=== PATIENT | female | born 1950 | race Caucasian/White ===

== ENCOUNTER → 2016-12-02 | Outpatient (CLI) | payer OTHER ==
[~2016-12-02] MED LIST: AUGMENTIN 875 M1 TAB PO; BUPROPION HYDR150 M1 PO; CEFUROXIME AXE250 MG PO; CIPRO250 MG PO; CIPROFLOXACIN500 MG PO; CITALOPRAM40 MG PO; CLARITIN10 MG PO; CORDROL20 MG PO; CYCLOBENZAPRINE10 MG PO; DARVOCET N 1001 TAB PO; FLEXERIL10 MG PO; GABAPENTIN TAB600 MG PO; HYDR12.5C PO; HYDROCODONE BIT1 T11 PO; IMITREX PO; KENALOG0.1% TP; LEVAQUIN750 M1 PO; LEXAPRO; LIDODERM 5% PATC1 EA PO; LISINOPRIL20 MG PO; LISINOPRIL40 MG PO; MIRAPEX0.25 MG PO; MOTRIN800 MG PO; Motrin,Rufen800 MG PO; NAPROXEN EC500 MG PO; NEURONTIN; PERCOCET 325 MG1 TA2 PO; PRILOSEC20 MG PO; PRILOSEC40 M1 PO; PROPRANOLOL; PROTONIX20 MG PO; PYRIDIUM200 MG PO; SYNTHROID; SYNTHROID,LEVO88 MCG PO; TRAZODONE50 MG PO; URSO FORTE500 MG PO; URSODIOL; URSODIOL250 MG PO; VALIUM10 MG PO; VANCOMYCIN1 GM/1001 IV; VICODIN 500 MG-1 TAB PO; VISTARIL50 MG PO; VOLTAREN; XANAX0.25 MG PO; XANAX0.5 MG PO; ZOFRAN4 MG PO
== END | disposition home or self-care (01) ==
LOC: RAD 10:16
DX: M47.896 Other spondylosis, lumbar region (principal); M41.86 Other forms of scoliosis, lumbar region; M54.5 Low back pain; M25.78 Osteophyte, vertebrae; R52 Pain, unspecified

== ENCOUNTER 2017-02-01 13:34 | Emergency (ER) | payer OTHER ==
[~2017-02-01] VITALS: Ht 170.1 cm; Wt 83.9 kg
[~2017-02-01 13:34] MED LIST changes: -BUPROPION HYDR150 M1 PO; -LEVAQUIN750 M1 PO; -VANCOMYCIN1 GM/1001 IV
[2017-02-01] MEDS ORDERED: LEVAQUIN750 M1 PO (13:54)
[2017-02-01] MEDS ORDERED: BUPROPION HYDR150 M1 PO (13:54)
[2017-02-01] MEDS ORDERED: VANCOMYCIN1 GM/1001 IV (13:56)
[2017-02-01 14:30] LABS: BILIRUBIN NEGATIVE (NEGATIVE); BLOOD NEGATIVE (NEGATIVE); CLARITY SL CLOUDY (CLEAR); COLOR YELLOW (YELLOW); GLUCOSE NEGATIVE (NEGATIVE); KETONE NEGATIVE (NEGATIVE); LEUKO ESTERASE 2+ (NEGATIVE); NITRITE NEGATIVE (NEGATIVE); PH 5.5 (5.0-9.0); PROTEIN NEGATIVE (NEGATIVE); SPECIFIC GRAVITY 1.025 (1.005-1.030); UROBILINOGEN 0.2 E.U./dl (0.2-1.0)
[2017-02-01 14:55] LABS: URINE REFLEX COMMENT YES (NO)
[2017-02-01 15:28] LABS: BASO % 0.4 % (0.0-1.0); EOS # 0.3 10*3/uL (0.0-0.4); EOS % 3.5 % (1.0-4.0); HEMATOCRIT 37.2 % (37.0-47.0); HEMOGLOBIN 12.1 g/dl (12.0-16.0); LYMPH # 1.8 10*3/uL (1.3-4.4); LYMPH % 24.8 % (27.0-41.0); MEAN CELL VOLUME 89.4 fl (81.0-99.0); MEAN CORPUSCULAR HGB 29.1 pg (27.0-31.0); MEAN CORPUSCULAR HGB CONC 32.5 g/dl (33.0-37.0); MEAN PLATELET VOLUME 9.2 fl (9.6-12.3); MONO # 0.5 10*3/uL (0.1-1.0); MONO % 7.2 % (3.0-9.0); NEUT # 4.6 10*3/uL (2.3-7.9); PLATELET COUNT AUTOMATED 218 10*3/uL (130-400); RED BLOOD COUNT 4.16 10*6/uL (4.10-5.10); RED CELL DISTRI WIDTH 13.7 % (0-14.5); WHITE BLOOD COUNT 7.2 10*3/uL (4.8-10.8)
[2017-02-01 15:36] LABS: INTERNATIONAL NORM RATIO 1.1 (2.0-3.5); PROTHROMBIN TIME 11.4 SECONDS (9.0-12.4)
[2017-02-01 15:43] LABS: ALBUMIN 3.2 gm/dl (3.1-4.5); BILIRUBIN, TOTAL 0.4 mg/dl (0.2-1.0); MAGNESIUM 2.3 mg/dL (1.5-2.1); POTASSIUM 4.7 mmol/L (3.5-5.1); TOTAL PROTEIN 8.5 gm/dL (6.4-8.2)
== END 2017-02-01 19:23 | disposition short-term general hospital (02) ==
LOC: ED 13:34
PROVIDERS: Emergency Medicine
DX: I82.621 Acute embolism and thrombosis of deep veins of right upper extremity (principal); G43.909 Migraine, unspecified, not intractable, without status migrainosus; Z90.49 Acquired absence of other specified parts of digestive tract; Z88.6 Allergy status to analgesic agent; Z79.899 Other long term (current) drug therapy

== ENCOUNTER → 2017-05-12 | Outpatient (CLI) | payer OTHER ==
[~2017-05-12] MED LIST changes: +BUPROPION HYDR150 M1 PO; +LEVAQUIN750 M1 PO; +VANCOMYCIN1 GM/1001 IV
== END | disposition home or self-care (01) ==
LOC: US 13:30
DX: R60.0 Localized edema (principal)

== ENCOUNTER → 2017-11-22 | Outpatient (CLI) | payer OTHER | END | disposition home or self-care (01) | LOC: WOUNDCARE 09:48 | DX: L89.512 Pressure ulcer of right ankle, stage 2 (principal); L89.892 Pressure ulcer of other site, stage 2; M86.8X8 Other osteomyelitis, other site; G62.9 Polyneuropathy, unspecified; Z87.891 Personal history of nicotine dependence; Z90.710 Acquired absence of both cervix and uterus; Z72.89 Other problems related to lifestyle ==

== ENCOUNTER 2017-11-27 12:52 | Emergency (ER) | payer OTHER ==
[~2017-11-27] VITALS: Wt 117.0 kg
== END 2017-11-27 15:00 | disposition home or self-care (01) ==
LOC: ED 12:52
DX: M25.551 Pain in right hip (principal); G43.909 Migraine, unspecified, not intractable, without status migrainosus; F10.10 Alcohol abuse, uncomplicated; Z88.6 Allergy status to analgesic agent; Z79.899 Other long term (current) drug therapy; Z86.718 Personal history of other venous thrombosis and embolism; Z90.49 Acquired absence of other specified parts of digestive tract

== ENCOUNTER → 2017-12-01 | Outpatient (CLI) | payer OTHER | END | disposition home or self-care (01) | LOC: WOUNDCARE 01:41 | DX: L89.512 Pressure ulcer of right ankle, stage 2 (principal); L89.892 Pressure ulcer of other site, stage 2; M86.8X7 Other osteomyelitis, ankle and foot; G62.9 Polyneuropathy, unspecified; Z90.710 Acquired absence of both cervix and uterus; Z87.891 Personal history of nicotine dependence; Z72.89 Other problems related to lifestyle ==

== ENCOUNTER 2018-01-05 13:04 | Emergency (ER) | payer OTHER ==
[~2018-01-05] VITALS: Ht 172.7 cm; Wt 113.4 kg
[2018-01-05] MEDS ORDERED: CEPHALEXIN500 M1 PO (16:53)
== END 2018-01-05 16:48 | disposition home or self-care (01) ==
LOC: ED 13:04
DX: S80.01XA Contusion of right knee, initial encounter (principal); S90.812A Abrasion, left foot, initial encounter; L03.116 Cellulitis of left lower limb; Z98.890 Other specified postprocedural states; Z90.710 Acquired absence of both cervix and uterus; Z88.5 Allergy status to narcotic agent; Z79.899 Other long term (current) drug therapy; W01.0XXA Fall on same level from slipping, tripping and stumbling without subsequent striking against object, initial encounter; Y93.E9 Activity, other interior property and clothing maintenance; Y92.090 Kitchen in other non-institutional residence as the place of occurrence of the external cause; Y99.9 Unspecified external cause status

== ENCOUNTER → 2018-08-15 | Outpatient (CLI) | payer OTHER ==
[~2018-08-15] MED LIST changes: +CEPHALEXIN500 M1 PO
[2018-08-15 08:15] LABS: BASO % 0.5 % (0.0-1.0); EOS # 0.3 10*3/uL (0.0-0.4); EOS % 4.3 % (1.0-4.0); HEMATOCRIT 41.4 % (37.0-47.0); HEMOGLOBIN 13.1 g/dl (12.0-16.0); LYMPH # 1.6 10*3/uL (1.3-4.4); MEAN CELL VOLUME 90.2 fl (81.0-99.0); MEAN CORPUSCULAR HGB 28.5 pg (27.0-31.0); MEAN CORPUSCULAR HGB CONC 31.6 g/dl (33.0-37.0); MEAN PLATELET VOLUME 9.9 fl (9.6-12.3); MONO # 0.5 10*3/uL (0.1-1.0); MONO % 7.9 % (3.0-9.0); NEUT # 3.9 10*3/uL (2.3-7.9); PLATELET COUNT AUTOMATED 194 10*3/uL (130-400); RED BLOOD COUNT 4.59 10*6/uL (4.10-5.10); RED CELL DISTRI WIDTH 14.8 % (0-14.5); WHITE BLOOD COUNT 6.2 10*3/uL (4.8-10.8)
[2018-08-15 08:37] LABS: ALBUMIN 3.2 gm/dl (3.1-4.5); BUN 15 mg/dl (7-24); CHLORIDE 107 mmol/L (98-107); CHOLESTEROL 193 mg/dL (<200); CREATININE 0.94 mg/dL (0.55-1.02); POTASSIUM 4.8 mmol/L (3.5-5.1); SGOT/AST 30 IU/L (3-35); SGPT/ALT 26 U/L (12-78); SODIUM 142 mmol/L (136-145); TRIGLYCERIDES 126 mg/dl (<150); VLDL CHOLESTEROL 25 mg/dL (6-40)
[2018-08-15 08:46] LABS: ALKALINE PHOSPHATASE 148 U/L (45-117); HDL CHOLESTEROL 53 mg/dl (40-60); LDL CHOLESTEROL 115 mg/dL (9-159)
== END | disposition home or self-care (01) ==
LOC: LAB 07:26
PROVIDERS: Family Medicine
DX: Z01.818 Encounter for other preprocedural examination (principal); I10 Essential (primary) hypertension; M79.89 Other specified soft tissue disorders; E55.9 Vitamin D deficiency, unspecified

== ENCOUNTER → 2018-10-05 | Outpatient (CLI) | payer OTHER ==
[2018-10-05 15:43] LABS: BASO % 0.3 % (0.0-1.0); EOS # 0.2 10*3/uL (0.0-0.4); EOS % 3.5 % (1.0-4.0); HEMOGLOBIN 11.9 g/dl (12.0-16.0); LYMPH % 32.4 % (27.0-41.0); MEAN CELL VOLUME 89.4 fl (81.0-99.0); MEAN CORPUSCULAR HGB 28.7 pg (27.0-31.0); MEAN CORPUSCULAR HGB CONC 32.2 g/dl (33.0-37.0); MEAN PLATELET VOLUME 9.7 fl (9.6-12.3); MONO # 0.5 10*3/uL (0.1-1.0); MONO % 8.2 % (3.0-9.0); NEUT # 3.3 10*3/uL (2.3-7.9); NEUT % 55.4 % (47.0-73.0); PLATELET COUNT AUTOMATED 215 10*3/uL (130-400); RED BLOOD COUNT 4.14 10*6/uL (4.10-5.10); RED CELL DISTRI WIDTH 13.8 % (0-14.5)
[2018-10-05 15:51] LABS: INTERNATIONAL NORM RATIO 3.2 (2.0-3.5)
== END | disposition home or self-care (01) ==
LOC: LAB 15:04
DX: I82.409 Acute embolism and thrombosis of unspecified deep veins of unspecified lower extremity (principal)